=== PATIENT | male | born 2005 | race Hispanic/Latino ===

== ENCOUNTER 2024-11-16 19:50 | Emergency (ER) | payer BC ==
[~2024-11-16 19:50] MED LIST: Iopamidol-370 76% 500 ML MDV (1 ML CHARGE) ONE
[2024-11-16 20:17] LABS: #Basophils 0.03 10x3/uL (0.0-0.2); #Eosinophils 0.04 10x3/uL (0.0-0.7); #Monocytes 0.66 10x3/uL (0.11-0.59); #Neutrophils 5.82 10x3/uL (1.40-6.50); %Basophils 0.4 % (0.0-1.0); %Eosinophils 0.5 % (0.0-10.0); %Lymphocytes 20.4 % (28.0-48.0); %Monocytes 8.0 % (0.0-4.0); %Neutrophils 70.5 % (31.0-61.0); Hematocrit 45.4 % (42.0-52.0); Hemoglobin 16.1 g/dL (14.0-18.0); Mean Corpuscular Hemoglobin 28.2 pg (25.0-35.0); Mean Corpuscular Volume 79.5 fL (78.0-98.0); Platelet Count 352 10x3/uL (130-400); Red Blood Cell (RBC) Count 5.71 mill/uL (4.00-5.20); White Blood Cell (WBC) Count 8.25 10x3/uL (4.8-10.8)
[2024-11-16] MEDS ORDERED: Ondansetron PF 4 MG/2 ML Vial ONE (20:33)
[2024-11-16 20:43] LABS: ALT (SGPT) 31 U/L (Less than 45); AST (SGOT) 23 U/L (11-34); Albumin 4.8 g/dL (3.1-4.5); Alkaline Phosphatase 97 U/L (50-130); Anion Gap 17 mmol/L (10-20); BUN (Urea Nitrogen) 11 mg/dL (8.4-21.0); Bilirubin, Total 0.6 mg/dL (0.3-1.2); Calc. Creatinine Clearance 0 mL/min (70-130); Calcium 9.8 mg/dL (7.8-10.44); Carbon Dioxide 24 mmol/L (22-29); Chloride 99 mmol/L (98-107); Globulin 3.5 g/dL (2.4-3.5); Glucose 100 mg/dL (70-105); Potassium 3.3 mmol/L (3.5-5.1); Sodium 137 mmol/L (136-145)
[2024-11-16 20:44] LABS: Acetaminophen Less than 10 mcg/mL (Less than 10); CK (CPK) 102 U/L (30-200); Lipase 26 U/L (8-78); Salicylate Less than 8.0 mg/dL (Less than 8.0)
[2024-11-16 21:03] LABS: Bacteria/HPF None Seen HPF (None Seen); CAUTI Indications for Culture Dysuria,urgency,freq; Glucose, Urine (Dipstick) Normal (Negative); Leukocyte Negative Leu/uL (Negative); Protein, Urine (Dipstick) 10 mg/dL (Neg-Trace); RBC/HPF 0-3 HPF (0-3); Specific Gravity, Urine 1.025 (1.002-1.036)
[2024-11-16 21:04] LABS: Urine Culture Reflex Yes Yes
[2024-11-16 21:11] LABS: Cocaine Metabolite Screen Negative (Negative); THC/Cannabinoid Screen PRELIM POSITIVE (Negative); Tricyclic Screen Negative (Negative)
== END 2024-11-16 21:59 | disposition home or self-care (01) ==
LOC: ERS 19:50
DX: K59.00 Constipation, unspecified (principal); R11.2 Nausea with vomiting, unspecified; F17.210 Nicotine dependence, cigarettes, uncomplicated
CPT/HCPCS: 74177; 80053; 80306; 80307; 81001; 82550; 83690; 85025; 87086; 96361; 96374; J2405; Q9967

== ENCOUNTER 2024-11-17 09:24 | Emergency (ER) | payer BC | END 2024-11-17 10:15 | disposition home or self-care (01) | LOC: ERS 09:24 | DX: K29.00 Acute gastritis without bleeding (principal); F17.210 Nicotine dependence, cigarettes, uncomplicated | CPT/HCPCS: 96372; 99283; Q0162 ==